=== PATIENT | female | born 1995 | race Hispanic/Latino ===

== ENCOUNTER 2020-07-11 10:14 | Outpatient (CLI) | payer OTHER ==
--- NOTE | 2020-07-11 11:16 | ULT ---
US OB Complete STANDARD History: Anatomy scan Comparison: None. Findings: Real-time grayscale, color and spectral analysis of the gravid uterus was performed transab dominal approach. Normal single viable intrauterine with average ultrasound age 19 week 1 day with estimated date of delivery December 04, 2020. Estimated weight is 10 ounces. Biometry: Biparietal diameter: 4.42 cm, 19 week 3 day Head circumference: 15.62 cm, 18 week 4 day Abdominal circumference: 13.29 cm, 18 weeks 6 day Femur length: 3.09 cm, 19 week 5 day Heart rate documented at 139 bpm. Adequate amniotic fluid. The placenta is posterior and the presentation is breech. The cervix is clos ed and measures 6 cm in length. Anatomy: The head, cerebellum, cisterna magna, lateral ventricles, four-chamber heart, stomach, kidne ys, cord insertion, bladder, spine, lips/nose, upper extremities, lower extremities, three-vessel cord are all normal. Impression: Normal single viable intrauterine .
== END 2020-07-11 10:15 | disposition home or self-care (01) ==
LOC: BICULT 10:14
PROVIDERS: ATTEND Family Medicine
DX: O09.92 Supervision of high risk pregnancy, unspecified, second trimester (principal); Z3A.19 19 weeks gestation of pregnancy
CPT/HCPCS: 76805

== ENCOUNTER 2020-11-15 11:05 | Outpatient (CLI) | payer OTHER ==
[2020-11-16 04:13] LABS: SARS-CoV-2 PCR by NAA Not Detected (NotDetected)
== END 2020-11-15 11:06 | disposition home or self-care (01) ==
LOC: LABBT 11:05
PROVIDERS: ATTEND Family Medicine
DX: Z01.812 Encounter for preprocedural laboratory examination (principal); Z20.822 Contact with and (suspected) exposure to COVID-19
CPT/HCPCS: 87635; U0003; U0005

== ENCOUNTER 2020-11-18 18:00 | Inpatient (IN) | payer MEDICAID, OTHER, SELFPAY ==
[~2020-11-18 18:00] MED LIST: Bupivacaine HCl 0.25%/Epi 0.0005/PF 10 ML VIAL FS ONE
[2020-11-18 21:02] VITALS: BMI 31.3
[2020-11-18] MEDS ORDERED: hydrALAZINE 20 MG/ML VIAL SLOW IVP PRN (21:43)
[2020-11-18] MEDS ORDERED: Lidocaine 1% (PF) 30 ML VIAL SC PRN (21:43)
[2020-11-18] MEDS ORDERED: Ibuprofen 800 MG TAB PO PRN (21:43)
[2020-11-18] MEDS ORDERED: Butorphanol Tartrate 1 MG/ML VIAL SLOW IVP PRN (21:43)
[2020-11-18] MEDS ORDERED: Carboprost 250 MCG/ML AMP IM PRN (21:43)
[2020-11-18] MEDS ORDERED: Ondansetron PF 4 MG/2 ML Vial IVP PRN (21:43)
[2020-11-18] MEDS ORDERED: Methylergonovine 0.2 MG/ML VIAL IM PRN (21:43)
[2020-11-18] MEDS ORDERED: Diphenoxylate HCl/Atropine Tablet PO PRN (21:43)
[2020-11-18] MEDS ORDERED: HYDROcodone/Acetaminophen 5/325 mg Tablet PO PRN (21:43)
[2020-11-18] MEDS ORDERED: Promethazine HCl 25 MG/ML VIAL IM PRN (21:43)
[2020-11-18] MEDS ORDERED: NS / Oxytocin 40 units/1000ml 1,000 ML IV PRN (21:43)
[2020-11-18] MEDS ORDERED: Misoprostol 200 MCG TAB PR PRN (21:43)
[2020-11-18] MEDS ORDERED: Lactated Ringer's 1,000 ML IV SCH (21:45)
[2020-11-18] MEDS ORDERED: Penicillin G Potassium 5 MILL.UNITS in Sodium Chloride 0.9% 100 ML IVPB SCH (22:00)
[2020-11-18] MEDS ORDERED: NS w/ Oxytocin 30 units 500 ML IVPB SCH (22:00)
[2020-11-18 22:37] LABS: Hemoglobin 12.2 g/dL (12.0-16.0); Mean Corpuscular HGB CONC 33.8 g/dL (32.0-36.0); Mean Corpuscular Hemoglobin 27.9 pg (27.0-31.0); Mean Corpuscular Volume 82.6 fL (78.0-98.0); Platelet Count 130 thou/uL (130-400); RBC Distribution Width 13.6 % (11.5-14.5); Red Blood Cell (RBC) Count 4.36 mill/uL (4.20-5.40); White Blood Cell (WBC) Count 9.3 thou/uL (4.8-10.8)
[2020-11-18 23:07] LABS: Syphilis Antibody Nonreactive (Nonreactive); Syphilis Antibody Index 0.06 S/CO (<1.00 Non-Reactive)
[2020-11-18 23:08] LABS: HBSAg Index 0.17 S/CO (0-0.99); Hep B Surf Ag Non-Reactive S/CO (NonReactive)
[2020-11-19] MEDS: NS w/ Oxytocin 30 units 500 ML IVPB SCH ×2 (02:56→10:30)
[2020-11-19] MEDS: Penicillin G 2.5 MILL.units 2.5 MILL.UNITS in Premix Bag 1 BAG IVPB SCH ×2 (06:59→12:41)
[2020-11-19] MEDS ORDERED: Fentanyl 4 mcg/Bup 0.1% Cadd 100 ML ONE (08:14)
[2020-11-19] MEDS ORDERED: Naloxone HCl 0.4 mg/ml Vial IVP PRN ×2 (08:56)
[2020-11-19] MEDS ORDERED: ePHEDrine 50 MG/ML VIAL SLOW IVP PRN (08:56)
[2020-11-19] MEDS ORDERED: diphenhydrAMINE 50 MG/ML VIAL IVP PRN (08:56)
[2020-11-19] MEDS ORDERED: Ondansetron PF 4 MG/2 ML Vial IVP PRN ×2 (08:56→11:41)
[2020-11-19] MEDS ORDERED: Acetaminophen 325 MG TAB PO PRN (08:56)
[2020-11-19] MEDS ORDERED: Promethazine HCl 25 MG/ML VIAL IM PRN ×2 (08:56→11:41)
[2020-11-19] MEDS ORDERED: Lactated Ringer's 500 ML IV PRN (08:56)
[2020-11-19] MEDS ORDERED: Fentanyl 4 mcg/Bupivacaine 0.1% Cassette 100 ML EPIDURAL SCH (09:00)
[2020-11-19] MEDS ORDERED: Communication Order-Pharmacy FS PRN (09:00)
[2020-11-19] MEDS ORDERED: HYDROcodone/Acetaminophen 5/325 mg Tablet PO PRN (11:41)
[2020-11-19] MEDS ORDERED: hydrALAZINE 20 MG/ML VIAL SLOW IVP PRN (11:41)
[2020-11-19] MEDS ORDERED: diphenhydrAMINE 25 MG CAP PO PRN (11:41)
[2020-11-19] MEDS ORDERED: Bisacodyl 10 MG SUPP PR PRN (11:41)
[2020-11-19] MEDS ORDERED: Milk Of Magnesia 30 ML UDCUP PO PRN (11:41)
[2020-11-19] MEDS ORDERED: Lanolin Ointment 7 GM TUBE TOP PRN (11:41)
[2020-11-19] MEDS ORDERED: NS / Oxytocin 40 units/1000ml 1,000 ML IV SCH (11:41)
[2020-11-19] MEDS ORDERED: Adacel (T-DAP) 0.5 ML SYRINGE IM ONE (11:41)
[2020-11-19] MEDS ORDERED: NS w/ Oxytocin 30 units 500 ML IV SCH (12:15)
[2020-11-19] MEDS ORDERED: FLU VACC QS2020-21(6MOS UP)/PF 60 MCG/0.5 ML SYRINGE IM ONE (13:00)
[2020-11-19] MEDS: Ibuprofen 800 MG TAB PO SCH ×2 (15:18→21:49)
[2020-11-19] MEDS: Ferrous Sulfate 325 MG TAB PO SCH (16:56)
[2020-11-19] MEDS: Docusate Calcium (SURFAK) 240 MG CAP PO SCH (21:52)
[2020-11-20] MEDS: Ibuprofen 800 MG TAB PO SCH ×3 (05:03→21:29)
[2020-11-20] MEDS: Prenatal Vitamin 1 TAB PO SCH (09:18)
[2020-11-20] MEDS: Docusate Calcium (SURFAK) 240 MG CAP PO SCH ×2 (09:18→21:28)
[2020-11-20] MEDS: Ferrous Sulfate 325 MG TAB PO SCH ×2 (09:19→17:41)
[2020-11-21] MEDS: Ibuprofen 800 MG TAB PO SCH (05:18)
[2020-11-21] MEDS: Ferrous Sulfate 325 MG TAB PO SCH (08:03)
[2020-11-21] MEDS: Prenatal Vitamin 1 TAB PO SCH (11:23)
[2020-11-21] MEDS: Docusate Calcium (SURFAK) 240 MG CAP PO SCH (11:24)
[2020-11-21 12:39] VITALS: BP 140/87; TEMP 98
== END 2020-11-21 11:45 | disposition home or self-care (01) | DRG 807 ==
LOC: L&D 19:41 → 3SW 11-19 11:40
PROVIDERS: ADMIT Family Medicine; ATTEND Family Medicine
PROC: 10E0XZZ Delivery of Products of Conception, External Approach (ICD-10-PCS; principal; 2020-11-19)
PROC: 10907ZC Drainage of Amniotic Fluid, Therapeutic from Products of Conception, Via Natural or Artificial Opening (ICD-10-PCS; 2020-11-19)
DX: O24.420 Gestational diabetes mellitus in childbirth, diet controlled (principal); Z37.0 Single live birth; Z20.822 Contact with and (suspected) exposure to COVID-19; O99.824 Streptococcus B carrier state complicating childbirth; Z3A.39 39 weeks gestation of pregnancy
CPT/HCPCS: 36415; 36416; 85027; 86780; 86850; 86900; 86901; 87340; 90715; J2540; J2590; J3490